=== PATIENT | female | born 1980 | race Caucasian/White ===

== ENCOUNTER 2025-08-01 09:12 | Day surgery (SDC) | payer BC ==
[2025-08-01] MEDS ORDERED: Acetaminophen 500 MG TAB ONE (09:20)
[2025-08-01] MEDS: Acetaminophen 500 MG TAB PO SCH (09:21)
[2025-08-01] MEDS: Iron Sucrose Complex 500 MG in Sodium Chloride 0.9% 250 ML 250 ML IVPB SCH (09:58)
[2025-08-01 14:49] VITALS: BP 143/73; TEMP 98.4
== END 2025-08-01 14:46 | disposition home or self-care (01) ==
LOC: ONC/OP 09:12
PROVIDERS: ATTEND Obstetrics & Gynecology
DX: O99.019 Anemia complicating pregnancy, unspecified trimester (principal); Z3A.00 Weeks of gestation of pregnancy not specified
CPT/HCPCS: 96365; 96366; J1756; J7050